=== PATIENT | female | born 1970 | race Caucasian/White ===

== ENCOUNTER 2019-05-26 08:24 | Emergency (ER) | payer OTHER ==
[~2019-05-26] VITALS: Ht 162.6 cm; Wt 79.4 kg
[2019-05-26] MEDS ORDERED: REQUIP5 MG PO (08:43)
[2019-05-26] MEDS ORDERED: DEPAKOTE ER500 M1 PO (08:43)
[2019-05-26 09:02] VITALS: BP 145/83
== END 2019-05-26 09:03 | disposition home or self-care (01) ==
LOC: ER 08:24
DX: F41.1 Generalized anxiety disorder (principal); F43.0 Acute stress reaction; G40.909 Epilepsy, unspecified, not intractable, without status epilepticus; M54.2 Cervicalgia; R05 Cough; F17.210 Nicotine dependence, cigarettes, uncomplicated; Z79.899 Other long term (current) drug therapy